=== PATIENT | female | born 1995 | race Caucasian/White ===

== ENCOUNTER 2018-05-19 11:45 | Inpatient (IN) | payer OTHER, SELFPAY ==
[2018-05-19 12:05] VITALS: BMI 25.9
[2018-05-19] MEDS: Lactated Ringers 1,000 ML 50 ML IV ×2 (16:50→20:17)
[2018-05-19 17:08] LABS: Hematocrit 32.4 % (37-47); Hemoglobin 10.6 g/dl (12.0-15.0); Mean Corp Hgb Conc 32.7 g/gl (32-36); Mean Corpuscular Hgb 27.7 pg (27.0-32.0); Mean Corpuscular Volume 84.8 fL (81-99); Platelet Count 139 K/mm3 (150-450); RBC Distribution Width CV 13.4 % (11.6-14.6); RBC Distribution Width SD 41.1 fl (35.1-43.9); Red Blood Count 3.82 M/mm3 (4.2-5.4); White Blood Count 6.6 K/mm3 (4.4-11.0)
[2018-05-19 17:10] LABS: Scan Indicated on CBC? Y/N NO
[2018-05-19] MEDS: Oxytocin 30 units/NS 500 ml 30 UNITS/500 ML IV.SOLN IV (17:36)
[2018-05-19] MEDS: fentaNYL-bupivacaine (epidural) 100 ML BAG EPIDURAL (20:33)
[2018-05-19] MEDS: Oxytocin 30 units/NS 500 ml 30 UNITS/500 ML IV.SOLN 334 UNITS IV (22:02)
[2018-05-19] MEDS: Methylergonovine 0.2 MG/ML Ampul IM (22:32)
[2018-05-19] MEDS: Oxytocin 30 units/NS 500 ml 30 UNITS/500 ML IV.SOLN 167 UNITS IV (22:32)
--- NOTE | 2018-05-19 22:49 | PCM.OB.VAG ---
- Problem List (1) 39 weeks gestation of Status: Acute (2) (spontaneous vaginal delivery) Status: Acute Vaginal Delivery Maternal Presentation: Elective Induction Method of Induction: Pitocin, Amniotomy Amniotic Membrane Rupture Type: Artificial Rupture of Membrane time: 02/16/18 1736h Amniotic Fluid Description: Clear Final ELAINE: 05/22/18 Final ELAINE Source: US <20 weeks Gestational age: 39 Weeks and 4 Days Date of Procedure: 05/19/18 Pre-Operative Diagnosis: 39 4/7wga, IOL Post-Operative Diagnosis: 39 4/7wga, IOL Surgery/ Procedure Performed: Spontaneous Vaginal Delivery Anesthesiologist: Gabino Frederick Type of Anesthesia: Epidural Description of Procedure: Patient was FD/+3 station on my arrival. She pushed to delivery a vigorous male infant over an intact perineum. The infant was placed on the maternal abdomen and further attended by nursery personnel. The cord was doubly clamped and cut after approximately 6 minutes of life. Cord blood specimen was obtained. The placenta delivered spontaneously and appeared intact on inspection. IV pitocin was started. A small vaginal laceration was repaired with 3-0 Vicryl Rapide with hemostasis attained. Sponge counts were correct x 2 Presentation: Vertex Placental Delivery Description: Spontaneous Placenta Disposition: [facility] Cord Vessel Description: 3 Vessels Nuchal Cord Compression: Without compression Cord Entanglement: None Drain: Blanton to straight drain Estimated Blood Loss: 300 ml (1 minute): 8 (5 minute): 9 Episiotomy Description: None Laceration: None Medications given after delivery: IV Pitocin Complications: None
--- NOTE | 2018-05-19 22:55 | DCINST_ITS ---
Discharge Diet: No Restrictions Discharge Activity: Return to Normal Activity, May not drive while taking narcotic pain medications., May Shower May resume sexual activity in: 6 weeks Lifting Restrictions: 10-20 lb Call your doctor if you observe: Fever of 101 or Higher, Inability to urinate, Inability to have a bowel movement, Using more than one pad per hour, Shortness of breath, Chest pain, Calf discomfort, Uncontrolled pain Additional Instructions: If you experience any of the following, contact your healthcare provider. * Bleeding that soaks a pad every hour for 2 hours * Fever 100.4 or higher * Unrelieved incision or abdominal pain * Swelling, redness, discharge or bleeding from your incision or episiotomy site * Your incision begins to separate * Problems urinating (including inability to urinate or burning while urinating) . * Visual changes * Severe headache * Flu-like symptoms * Pain or redness in one of both of your breasts * Pain, warmth, tenderness or swelling in your legs, especially the calf area * Frequent nausea and vomiting * Symptoms of depression or anxiety If you experience any of the following, call 911 or go to the nearest Emergency Room. * Chest pain * Problems breathing * Seizure activity * Partial or complete paralysis of a body part, slurred speech, weakness or drooping of the face, or a sudden inability to walk or hold your balance Allergies/Adverse Reactions: Allergies No Known Allergies Allergy (Verified 06/13/17 21:15) Medications to take at Discharge Docusate Sodium [Colace] 100 mg PO BID PRN PRN #60 cap 05/19/18 Ibuprofen 600 mg PO Q8H PRN #30 tab 05/19/18 Vit No.130/Iron/FA [ Vitamins] 1 each PO 05/19/18 The following prescriptions were given: Docusate Sodium [Colace] 100 mg PO BID PRN PRN #60 cap PRN Reason: Constipation Ibuprofen 600 mg PO Q8H PRN #30 tab PRN Reason: Pain Please Follow Up With: Cristin Swift MD When: 2 weeks and 6 weeks post Primary Care Physician: Care Physician,No Primary [Primary Care Provider] -
[2018-05-20] VITALS (7 sets, daily range): BP systolic 109–129; BP diastolic 59–74; PULSE 53–78; RESP 16–20; TEMP 36.4–37.6; O2SAT 97–99
[2018-05-20] MEDS: 0.9% Saline Lock 10 ML Syringe IV (00:19)
[2018-05-20] MEDS: Ibuprofen 600 MG Tablet PO ×3 (00:19→23:16)
[2018-05-20] MEDS: oxyCODONE 5 MG Tablet PO (01:00)
[2018-05-20] MEDS: miSOPROStol 200 MCG Tablet 800 MCG BUCCAL (01:01)
--- NOTE | 2018-05-20 01:05 | NURSING ---
0045 dr nestor feng on unit, updated via phone on pt fundus being boggy at times with min bleeding. in room to check on pt, manual exam done. small clot expressed. to continue to monitor. to medicate with cytotec buccal
[2018-05-20 06:43] LABS: Hematocrit 32.2 % (37-47); Hemoglobin 11.3 g/dl (12.0-15.0); Mean Corp Hgb Conc 35.1 g/gl (32-36); Mean Corpuscular Hgb 29.5 pg (27.0-32.0); Mean Corpuscular Volume 84.1 fL (81-99); Mean Platelet Vol. 12.2 fl (6.2-12.0); Platelet Count 125 K/mm3 (150-450); RBC Distribution Width CV 12.8 % (11.6-14.6); RBC Distribution Width SD 38.5 fl (35.1-43.9); Red Blood Count 3.83 M/mm3 (4.2-5.4)
[2018-05-20 06:44] LABS: Scan Indicated on CBC? Y/N NO
--- NOTE | 2018-05-20 08:35 | PCM.PN.OB ---
Patient Problems: Active and Suspected Problems 39 weeks gestation of (Acute) (spontaneous vaginal delivery) (Acute) Subjective: Denies heavy lochia. Her pain is much improved from overnight. She has been out of bed. No complaints. Infant is nursing well. Objective: AVSS - Physical Exam General: Alert, Oriented x3, Cooperative HEENT: Atraumatic, Normocephalic Lungs: Clear to auscultation, Normal air movement Cardiovascular: Regular rate, Regular Rhythm, Normal S1, Normal S2 Abdomen: Soft, Non Tender, Non-Distended, - - Fundus firm and nontender at 1 FW below umbilicus, lochia scant Extremities: No edema, No Calf Tenderness Neurological: Neuro grossly intact Psych/Mental Status: Normal Affect, Appropriate, Alert and oriented to time, place, person, mood and affect Vital Signs Temp Pulse Resp BP Pulse Ox 99.2 F H 77 16 120/59 L 98 05/20/18 08:40 05/20/18 08:40 05/20/18 08:40 05/20/18 08:40 05/20/18 08:40 Oxygen Delivery Method Room Air Weight: 77.201 kg Body Mass Index (BMI) 25.9 Intake and Output for Last 24 Hours 05/18/18 05/19/18 05/20/18 23:59 23:59 23:59 Intake Total 1928 Balance 1928 Laboratory Tests Past 24 Hrs 05/19/18 05/19/18 05/20/18 16:50 16:50 01:20 WBC 6.6 RBC 3.82 L Hgb 10.6 L Hct 32.4 L MCV 84.8 MCH 27.7 MCHC 32.7 RDW 13.4 RDW Differential 41.1 Plt Count 139 L MPV 12.0 Blood Type A NEGATIVE Antibody Screen NEGATIVE Screen NEGATIVE Baby's Blood Type A POSITIVE Baby's [place] NEGATIVE 05/20/18 06:30 WBC 12.0 H RBC 3.83 L Hgb 11.3 L Hct 32.2 L MCV 84.1 MCH 29.5 MCHC 35.1 RDW 12.8 RDW Differential 38.5 Plt Count 125 L MPV 12.2 H Blood Type Antibody Screen Screen Baby's Blood Type Baby's [place] Medical Necessity - Tobacco Use Smoking Status: Never smoker Assessment/Plan All Active Problems 39 weeks gestation of (Acute) (spontaneous vaginal delivery) (Acute) Inevitable (Acute) Inevitable (Acute) Active labor at term (Acute) 20yo PPD#1 s/p doing well. -Rh negative, infant Rh positive - for Rhogam -Ambulation encouraged - -Routine care
[2018-05-20] MEDS: Prenatal Vits Tablet 1 TABLET PO (10:41)
[2018-05-21 02:00] VITALS: BP 104/63; PULSE 72; RESP 16; TEMP 36.1; O2SAT 97
[2018-05-21 08:30] VITALS: BP 113/57; PULSE 65; RESP 18; TEMP 36.6
--- NOTE | 2018-05-21 10:00 | PCM.PN.OB ---
Patient Problems: Active and Suspected Problems 39 weeks gestation of (Acute) (spontaneous vaginal delivery) (Acute) Subjective: vaginal delivery day #2. Patient without complaints. Breast-feeding going well. Will release to home with routine instructions. - Physical Exam Vital Signs Temp Pulse Resp BP Pulse Ox 97.9 F 65 18 113/57 L 97 05/21/18 08:30 05/21/18 08:30 05/21/18 08:30 05/21/18 08:30 05/21/18 02:00 Oxygen Delivery Method Room Air Weight: 170 lb 3.2 oz Body Mass Index (BMI) 25.9 Intake and Output for Last 24 Hours 05/19/18 05/20/18 05/21/18 23:59 23:59 23:59 Intake Total 1928 Balance 1928 Medical Necessity - Tobacco Use Smoking Status: Never smoker Assessment/Plan All Active Problems 39 weeks gestation of (Acute) (spontaneous vaginal delivery) (Acute) Inevitable (Acute) Inevitable (Acute) Active labor at term (Acute) Doing well. Will release to home with routine instructions.
[2018-05-21] MEDS: Prenatal Vits Tablet 1 TABLET PO (10:32)
--- NOTE | 2018-05-21 12:34 | NURSING ---
1120 pt and baby discharged to home via w/c . discharge instructions given. pt states understanding
== END 2018-05-21 11:20 | disposition home or self-care (01) | DRG 775 ==
PROVIDERS: Admitting Provider Obstetrics & Gynecology; Visit Provider Obstetrics & Gynecology
DX: O70.0 First degree perineal laceration during delivery (principal); J45.909 Unspecified asthma, uncomplicated; Z87.442 Personal history of urinary calculi; Z87.440 Personal history of urinary (tract) infections; Z3A.39 39 weeks gestation of pregnancy; Z37.0 Single live birth
CPT/HCPCS: 59025; 59050; 85027; 85461; 86850; 86900; 90384; 99218; J7120; A4216; G0378; J2790